=== PATIENT | male | born 1965 | race Hispanic/Latino ===

== ENCOUNTER 2017-03-28 16:54 | Emergency (ER) | payer OTHER ==
[2017-03-28] MEDS ORDERED: AZITHROMYCIN 250 MG TABLET PO ONE (19:24)
== END 2017-03-28 19:47 | disposition home or self-care (01) ==
LOC: EDH 16:54
DX: R04.0 Epistaxis (principal); J18.9 Pneumonia, unspecified organism; E11.9 Type 2 diabetes mellitus without complications; I10 Essential (primary) hypertension
CPT/HCPCS: 71046; 87804

== ENCOUNTER 2018-10-31 02:55 | Observation (INO) | payer OTHER ==
[~2018-10-31] VITALS: Ht 177.8 cm; Wt 133.7 kg
[2018-10-31 03:16] LABS: BASOPHILS % (AUTO) 0.7 % (0.0-5.0); EOSINOPHILS % (AUTO) 2.9 % (0.0-8.0); HEMATOCRIT 40.9 % (42-54); LYMPHOCYTES % (AUTO) 22.2 % (21.0-51.0); MEAN CORPUSCULAR HEMOGLOBIN 30.3 pg (27.0-33.0); MEAN CORPUSCULAR HGB CONC 33.9 g/dL (32.0-36.0); MEAN CORPUSCULAR VOLUME 89.4 fL (79-99); MONOCYTES % (AUTO) 12.4 % (3.0-13.0); NEUTROPHILS % (AUTO) 61.8 % (40.0-77.0); NUCLEATED RED BLOOD CELLS 0.1 % (0.0-0.19); PLATELET COUNT (AUTO) 79 K/uL (130-400); RED BLOOD CELL COUNT(AUTO) 4.57 MIL/uL (4.50-6.20); RED CELL DISTRIBUTION WIDTH 13.8 % (11.0-15.5); WHITE BLOOD COUNT (AUTO) 5.5 K/uL (4.8-10.8)
[2018-10-31 03:21] LABS: CREATININE 1.6 mg/dL (0.5-1.5); POTASSIUM 3.7 mmol/L (3.5-5.1)
[2018-10-31 03:26] LABS: ALBUMIN 3.9 g/dL (3.5-5.0); BILIRUBIN,TOTAL 0.8 mg/dL (0.2-1.0); TOTAL PROTEIN, SERUM 8.2 g/dL (6.0-8.3)
[2018-10-31 03:54] LABS: APPEARANCE,URINE Clear (CLEAR); BILIRUBIN,URINE Negative (NEGATIVE); COLOR,URINE Yellow (YELLOW); GLUCOSE, URINE (UA) >=1000 mg/dL (NEGATIVE); KETONES,URINE Negative (NEGATIVE); LEUKOCYTE ESTERASE ,URINE Trace (NEGATIVE); NITRATE,URINE Negative (NEGATIVE); OCCULT BLOOD,URINE Negative (NEGATIVE); PROTEIN,URINE POS 1+ mg/dL (NEGATIVE)
[2018-10-31 04:13] LABS: BACTERIA,URINE Few /HPF (None Seen); MUCUS,URINE Moderate LPF (None Seen); RBC,URINE None Seen /HPF (0-1); SQUAMOUS EPITHELIAL CELL,UR Moderate /HPF (0-2); YEAST,URINE BUDDING Moderate /HPF (None Seen)
[2018-10-31] MEDS ORDERED: ASPIRIN 325 MG TABLET ONE (04:52)
[2018-10-31] MEDS ORDERED: ONDANSETRON HCL 4 MG/2 ML VIAL IV PRN (07:15)
[2018-10-31] MEDS ORDERED: ACETAMINOPHEN 325 MG TAB PO PRN ×2 (07:15)
[2018-10-31 08:46] LABS: HEMOGLOBIN A1C 10.5 % (4.0-6.0)
[2018-10-31 09:11] LABS: MAGNESIUM 1.3 mg/dL (1.80-2.40); THYROID STIMULATING HORMONE 0.9 uIU/mL (0.36-3.74)
[2018-10-31 09:52] VITALS: BP 120/57
[2018-10-31] MEDS ORDERED: INSULIN HUMULIN R 100 UNIT/ML 3ML SQ SCH (11:30)
[2018-10-31 11:36] VITALS: BP 114/66
[2018-10-31] MEDS: ENOXAPARIN SODIUM 40 MG/0.4 ML SYRINGE SQ SCH (12:10)
[2018-10-31] MEDS: SODIUM CHLORIDE 0.9% 1000ML 1,000 ML IV SCH (12:11)
[2018-10-31] MEDS: MAGNESIUM 2GM PREMIX 50ML 50 ML IV PRN (13:59)
[2018-10-31 15:19] VITALS: BP 116/66
[2018-10-31] MEDS ORDERED: METF-526 PO (16:15)
[2018-10-31] MEDS ORDERED: METH500T6 PO (16:15)
[2018-10-31] MEDS ORDERED: METF500T7 PO (16:15)
[2018-10-31] MEDS ORDERED: INSU100C6 SQ (16:15)
[2018-10-31] MEDS ORDERED: PRAV10TA39 PO (16:15)
[2018-10-31] MEDS ORDERED: LISI40TA4 PO (16:15)
[2018-10-31] MEDS ORDERED: INSU100V12 SQ (16:15)
[2018-10-31] MEDS: INSULIN HUMULIN R 100 UNIT/ML 3ML SQ SCH ×4 (16:30→21:18)
[2018-10-31] MEDS ORDERED: GLUCAGON 1MG KIT 1 MG ML IM PRN (16:30)
[2018-10-31] MEDS ORDERED: DEXTROSE 50%-WATER 50 ML DISP.SYRIN IV PRN (16:30)
[2018-10-31] MEDS: INSULIN LISPRO 100 UNIT/ML 3ML SQ SCH (17:14)
[2018-10-31 19:42] VITALS: BP 121/74
[2018-10-31] MEDS ORDERED: LISINOPRIL 40 MG TABLET PO SCH (21:00)
[2018-10-31] MEDS ORDERED: SIMVASTATIN 10 MG TABLET PO SCH (21:00)
[2018-10-31] MEDS: INSULIN GLARGINE 100 UNITS/ML 10 ML VIAL SQ SCH (21:17)
[2018-10-31 23:30] VITALS: BP 108/57
[2018-11-01] MEDS: SODIUM CHLORIDE 0.9% 1000ML 1,000 ML IV SCH (03:04)
[2018-11-01 04:00] VITALS: BP 112/67
[2018-11-01 04:10] LABS: BASOPHILS % (AUTO) 0.8 % (0.0-5.0); EOSINOPHILS % (AUTO) 3.4 % (0.0-8.0); HEMATOCRIT 38.3 % (42-54); LYMPHOCYTES % (AUTO) 22.4 % (21.0-51.0); MEAN CORPUSCULAR HEMOGLOBIN 30.2 pg (27.0-33.0); MEAN CORPUSCULAR VOLUME 88.8 fL (79-99); MONOCYTES % (AUTO) 10.4 % (3.0-13.0); NUCLEATED RED BLOOD CELLS 0.1 % (0.0-0.19); PLATELET COUNT (AUTO) 78 K/uL (130-400); RED BLOOD CELL COUNT(AUTO) 4.31 MIL/uL (4.50-6.20); RED CELL DISTRIBUTION WIDTH 13.8 % (11.0-15.5); WHITE BLOOD COUNT (AUTO) 5.3 K/uL (4.8-10.8)
[2018-11-01 04:21] LABS: ALBUMIN 3.4 g/dL (3.5-5.0); BILIRUBIN,TOTAL 1.1 mg/dL (0.2-1.0); CREATININE 1.2 mg/dL (0.5-1.5); MAGNESIUM 1.3 mg/dL (1.80-2.40); POTASSIUM 3.7 mmol/L (3.5-5.1); TOTAL PROTEIN, SERUM 7.2 g/dL (6.0-8.3)
[2018-11-01 05:16] LABS: ERYTHROCYTE SEDIMENTATION RATE 32 MM/HR (0-20)
[2018-11-01] MEDS: INSULIN HUMULIN R 100 UNIT/ML 3ML SQ SCH ×4 (05:55→16:30)
[2018-11-01] MEDS: MAGNESIUM 2GM PREMIX 50ML 50 ML IV PRN (06:01)
[2018-11-01] MEDS: INSULIN LISPRO 100 UNIT/ML 3ML SQ SCH ×5 (06:03→17:23)
[2018-11-01 07:08] VITALS: BP 117/68
[2018-11-01] MEDS: ENOXAPARIN SODIUM 40 MG/0.4 ML SYRINGE SQ SCH (09:18)
[2018-11-01] MEDS: INSULIN GLARGINE 100 UNITS/ML 10 ML VIAL SQ SCH (09:24)
[2018-11-01] MEDS ORDERED: NITROGLYCERIN 1GM/1 INCH PACKET TD SCH (10:00)
[2018-11-01] MEDS ORDERED: ASPIRIN 325MG EC TAB 325 MG TABLET.DR PO SCH (10:00)
[2018-11-01 11:10] VITALS: BP 139/70
--- NOTE | 2018-11-01 11:51 | NUR ---
DC PLAN VISITED WITH PATIENT. PATIENT LIVES WITH FATHER. INDEPENDENT ABLE TO PERFORM ADL'S. PATIENT HAS NO SERVICES OR DME'S. FEELS SAFE TO RETURN HOME. WAS ASKED TO RETURN TO SPEAK TO SISTER. WANTING DISABILITY. SENT EMAIL TO HELP SONU. Addendum: 11/01/18 at 1154 by JARROD WILLINGHAM RN CM Amended: Links added.
[2018-11-01] MEDS ORDERED: METF-527 PO (14:52)
[2018-11-01] MEDS ORDERED: INSU100C6 SQ (14:52)
[2018-11-01] MEDS ORDERED: INSU100V12 SQ (14:52)
[2018-11-01] MEDS ORDERED: PRAV10TA39 PO (14:52)
[2018-11-01] MEDS ORDERED: MAGN400T6 PO (14:53)
[2018-11-01 15:10] VITALS: BP 124/77
[2018-11-01] MEDS ORDERED: INSULIN GLARGINE 100 UNITS/ML 10 ML VIAL SQ SCH (21:00)
[2018-11-01] MEDS ORDERED: METOPROLOL TARTRATE 25 MG TAB PO SCH (21:00)
[2018-11-01] MEDS ORDERED: FAMOTIDINE 20MG TAB 20 MG TAB PO SCH (21:00)
[2018-11-01] MEDS ORDERED: LISINOPRIL 5 MG TABLET PO SCH (21:00)
== END 2018-11-01 18:28 | disposition home or self-care (01) ==
LOC: EDH 02:55 → INTOOBSV 07:04 → EDHIP 07:04 → 2AH 09:40
PROVIDERS: ADMIT Family Medicine; ATTEND Family Medicine
DX: R07.89 Other chest pain (principal); E11.65 Type 2 diabetes mellitus with hyperglycemia; N17.9 Acute kidney failure, unspecified; I10 Essential (primary) hypertension; D69.6 Thrombocytopenia, unspecified; M62.838 Other muscle spasm; E78.5 Hyperlipidemia, unspecified; Z79.899 Other long term (current) drug therapy
CPT/HCPCS: 36415 ×2; 71045; 74176; 80053 ×2; 81001; 82550 ×2; 82948 ×7; 83036; 83735 ×2; 83880; 84443; 84484 ×3; 85025 ×2; 85651; 93005; 96365; 96366 ×2; 96372 ×2; A4510; G0378 ×30; G0480; J1650; J1815 ×4; J3475 ×2; J7030

== ENCOUNTER 2019-01-22 21:10 | Emergency (ER) | payer OTHER ==
[~2019-01-22 21:10] MED LIST: INSU100C6 SQ; INSU100V12 SQ; MAGN400T8 PO; METF-527 PO; PRAV10TA39 PO
[2019-01-22] MEDS ORDERED: KETOROLAC TROMETHAMINE 60 MG/2 ML VIAL ONE (21:33)
[2019-01-22] MEDS ORDERED: ACETAMINOPHEN-CODEINE 300/30MG TAB ONE (21:34)
== END 2019-01-22 22:01 | disposition home or self-care (01) ==
LOC: EDH 21:10
DX: K02.9 Dental caries, unspecified (principal); I10 Essential (primary) hypertension; E11.9 Type 2 diabetes mellitus without complications
CPT/HCPCS: 96372; 99283; J1885

== ENCOUNTER 2019-08-14 03:02 | Inpatient (IN) | payer OTHER ==
[~2019-08-14] VITALS: Ht 177.8 cm; Wt 138.3 kg
[2019-08-14] MEDS ORDERED: KETOROLAC TROMETHAMINE 15MG/ML ONE (03:29)
[2019-08-14] MEDS ORDERED: ASPIRIN 325 MG TABLET ONE (03:29)
[2019-08-14 03:41] LABS: BASOPHILS % (AUTO) 0.5 % (0.0-5.0); EOSINOPHILS % (AUTO) 2.7 % (0.0-8.0); LYMPHOCYTES % (AUTO) 23.5 % (21.0-51.0); MEAN CORPUSCULAR HEMOGLOBIN 29.1 pg (27.0-33.0); MEAN CORPUSCULAR HGB CONC 34.4 g/dL (32.0-36.0); MEAN CORPUSCULAR VOLUME 84.6 fL (79-99); MONOCYTES % (AUTO) 11.2 % (3.0-13.0); NEUTROPHILS % (AUTO) 61.8 % (40.0-77.0); PLATELET COUNT (AUTO) 86 K/uL (130-400); RED BLOOD CELL COUNT(AUTO) 4.61 MIL/uL (4.50-6.20); RED CELL DISTRIBUTION WIDTH 13.2 % (11.0-15.5)
[2019-08-14 03:52] LABS: INR 1.02 (0.85-1.15); PARTIAL THROMBOPLASTIN TIME 25.3 SEC (26.3-35.5)
[2019-08-14 03:57] LABS: CREATININE 1.6 mg/dL (0.5-1.5); POTASSIUM 3.5 mmol/L (3.5-5.1)
[2019-08-14 03:59] LABS: MAGNESIUM 1.9 mg/dL (1.80-2.40)
[2019-08-14 04:01] LABS: ALBUMIN 4.1 g/dL (3.5-5.0); BILIRUBIN,TOTAL 0.9 mg/dL (0.2-1.0); TOTAL PROTEIN, SERUM 8.4 g/dL (6.0-8.3)
[2019-08-14] MEDS ORDERED: NITROGLYCERIN 0.4 MG SL TAB SL PRN (06:45)
[2019-08-14] MEDS ORDERED: HYDRALAZINE HCL 20 MG/ML VIAL IV PRN ×2 (06:45→08:30)
[2019-08-14] MEDS ORDERED: MORPHINE SULFATE 2 MG/ML 1ML SYG IV PRN (06:45)
[2019-08-14] MEDS: CEFTRIAXONE SODIUM 1 GM IV SCH ×2 (06:45→18:20)
[2019-08-14 07:44] LABS: % IRON SATURATION 16.1 % (30-44)
[2019-08-14 08:10] LABS: ABG BASE EXCESS -3.6 mmol/L (-2.0-3.0); ABG HCO3 21.8 mmol/L (21.0-28.0); ABG OXYGEN SATURATION 95.3 % (95.0-99.0); ABG PCO2 41 mmHg (35-48)
[2019-08-14 08:14] LABS: CHOLESTEROL 120 mg/dL (<200); HDL CHOLESTEROL 31 mg/dL (29-71); LDL DIRECT 74 mg/dL (0-99); TRIGLYCERIDES 136 mg/dL (30-200)
[2019-08-14 08:36] LABS: CHOLESTEROL 122 mg/dL (<200); HDL CHOLESTEROL 31 mg/dL (29-71); LDL DIRECT 77 mg/dL (0-99); TRIGLYCERIDES 137 mg/dL (30-200)
[2019-08-14] MEDS: FAMOTIDINE/PF 20 MG/2 ML VIAL IV SCH (09:00)
[2019-08-14] MEDS: ASPIRIN 325 MG TABLET PO SCH (09:00)
[2019-08-14] MEDS ORDERED: CEFTRIAXONE SODIUM 1 GM ONE (09:18)
[2019-08-14] MEDS ORDERED: SODIUM CHLORIDE 0.9% 100 ML IV ONE (09:18)
[2019-08-14] MEDS ORDERED: FAMOTIDINE/PF 20 MG/2 ML VIAL IV ONE (09:19)
[2019-08-14 10:25] VITALS: BP 131/71
[2019-08-14] MEDS ORDERED: INSU100C6 SQ (11:06)
[2019-08-14] MEDS ORDERED: INSU100V12 SQ (11:06)
[2019-08-14] MEDS ORDERED: LISI40TA4 PO (11:06)
[2019-08-14] MEDS ORDERED: METH500T6 PO (11:06)
[2019-08-14] MEDS ORDERED: INSULIN HUMULIN R 100 UNIT/ML 3ML SQ SCH (11:30)
[2019-08-14 12:00] VITALS: BP 128/74
[2019-08-14] MEDS ORDERED: INSULIN GLARGINE 100 UNITS/ML 10 ML VIAL SQ ONE ×2 (13:00→15:15)
[2019-08-14] MEDS: SODIUM CHLORIDE 0.9% 1000ML 1,000 ML IV SCH (15:34)
[2019-08-14] MEDS: FUROSEMIDE 20 MG TABLET PO SCH (15:34)
[2019-08-14 16:00] VITALS: BP 119/77
[2019-08-14] MEDS ORDERED: INSULIN HUMULIN R 100 UNIT/ML 3ML ONE (16:45)
--- NOTE | 2019-08-14 16:49 | NUR ---
ONLY 12 UNITS OF INSULIN GIVEN NOT 300 PER PHARMACY COMPUTER. Addendum: 08/14/19 at 1650 by LORETO POWERS RN RN Amended: Links added.
[2019-08-14 20:09] VITALS: BP 138/69
[2019-08-14] MEDS: INSULIN HUMULIN R 100 UNIT/ML 3ML SQ SCH (20:47)
[2019-08-14 23:39] VITALS: BP 147/72
[2019-08-15] MEDS: SODIUM CHLORIDE 0.9% 1000ML 1,000 ML IV SCH ×2 (03:37→08:32)
[2019-08-15 04:11] LABS: BASOPHILS % (AUTO) 0.4 % (0.0-5.0); EOSINOPHILS % (AUTO) 3.1 % (0.0-8.0); HEMATOCRIT 38.1 % (42-54); LYMPHOCYTES % (AUTO) 23.5 % (21.0-51.0); MEAN CORPUSCULAR HEMOGLOBIN 29.4 pg (27.0-33.0); MEAN CORPUSCULAR HGB CONC 34.1 g/dL (32.0-36.0); MEAN CORPUSCULAR VOLUME 86.2 fL (79-99); MONOCYTES % (AUTO) 8.5 % (3.0-13.0); NEUTROPHILS % (AUTO) 64.3 % (40.0-77.0); PLATELET COUNT (AUTO) 68 K/uL (130-400); RED BLOOD CELL COUNT(AUTO) 4.42 MIL/uL (4.50-6.20); RED CELL DISTRIBUTION WIDTH 13.8 % (11.0-15.5); WHITE BLOOD COUNT (AUTO) 4.5 K/uL (4.8-10.8)
[2019-08-15 04:12] VITALS: BP 121/69
[2019-08-15 04:33] LABS: ALBUMIN 3.6 g/dL (3.5-5.0); BILIRUBIN,TOTAL 0.9 mg/dL (0.2-1.0); CREATININE 1.1 mg/dL (0.5-1.5); MAGNESIUM 1.8 mg/dL (1.80-2.40); PHOSPHORUS 3.4 mg/dL (2.5-4.9); POTASSIUM 4.2 mmol/L (3.5-5.1); TOTAL PROTEIN, SERUM 7.6 g/dL (6.0-8.3); URIC ACID 6.7 mg/dL (2.6-7.2)
[2019-08-15] MEDS: CEFTRIAXONE SODIUM 1 GM IV SCH ×2 (06:43→21:54)
[2019-08-15] MEDS: INSULIN HUMULIN R 100 UNIT/ML 3ML SQ SCH ×4 (06:45→21:32)
[2019-08-15 07:57] VITALS: BP 132/72
[2019-08-15] MEDS: FOLIC ACID/VITAMIN B COMP W-C 1 CAP TAB PO SCH (08:31)
[2019-08-15] MEDS: FAMOTIDINE/PF 20 MG/2 ML VIAL IV SCH (08:31)
[2019-08-15] MEDS: FUROSEMIDE 20 MG TABLET PO SCH (08:31)
[2019-08-15] MEDS: ASPIRIN 325 MG TABLET PO SCH (08:32)
[2019-08-15 08:44] LABS: CREATININE,URINE RANDOM 62 mg/dL (30-135); SODIUM,URINE RANDOM 81 mmol/l (40-220)
[2019-08-15 09:24] LABS: APPEARANCE,URINE CLEAR (CLEAR); BILIRUBIN,URINE NEGATIVE (NEGATIVE); COLOR,URINE YELLOW (YELLOW); GLUCOSE, URINE (UA) 500 mg/dL (NEGATIVE); KETONES,URINE NEGATIVE (NEGATIVE); LEUKOCYTE ESTERASE ,URINE MODERATE (NEGATIVE); NITRATE,URINE NEGATIVE (NEGATIVE); OCCULT BLOOD,URINE SMALL (NEGATIVE); PROTEIN,URINE NEGATIVE (NEGATIVE)
[2019-08-15 10:03] LABS: BACTERIA,URINE Rare /HPF (None Seen); RBC,URINE 0-1 /HPF (0-1); SQUAMOUS EPITHELIAL CELL,UR Rare /HPF (0-2)
[2019-08-15 11:34] VITALS: BP 137/78
--- NOTE | 2019-08-15 12:10 | NUR ---
DCP: HOME SW met with pt who is currently living with his parents, Luna [phone]. 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 Pt seen at [facility] for care and meds. Denies dc needs, plan [place] Addendum: 08/15/19 at 1212 by JUSTO PELAYO Amended: Links added.
--- NOTE | 2019-08-15 13:01 | NUR ---
DR. RODRIGEZ IN ROOM SPEAKING WITH PT. RE:PLAN OF CARE.
--- NOTE | 2019-08-15 13:27 | NUR ---
CM NOTE/SELF REFERRAL SELF REFERRAL/MEDICAL PACKETS AND GOOD RX COUPON EXPLAINED AND GIVEN TO PATIENT, PATIENT VERBALIZED UNDERSTANDING OF PACKETS AND COUPON
[2019-08-15] MEDS: ASPIRIN 81 MG EC TAB PO SCH (16:03)
[2019-08-15 16:20] VITALS: BP 142/73
[2019-08-15 19:00] VITALS: BP 136/83
[2019-08-15 23:00] VITALS: BP 141/77
[2019-08-16 03:00] VITALS: BP 144/82
[2019-08-16 04:23] LABS: HEMATOCRIT 38.2 % (42-54); MEAN CORPUSCULAR VOLUME 85.3 fL (79-99); RED BLOOD CELL COUNT(AUTO) 4.48 MIL/uL (4.50-6.20); RED CELL DISTRIBUTION WIDTH 13.3 % (11.0-15.5)
[2019-08-16 04:34] LABS: CREATININE 1.2 mg/dL (0.5-1.5); POTASSIUM 4.2 mmol/L (3.5-5.1)
[2019-08-16] MEDS: INSULIN HUMULIN R 100 UNIT/ML 3ML SQ SCH ×3 (06:40→16:30)
[2019-08-16 08:00] VITALS: BP 134/81
[2019-08-16] MEDS: FUROSEMIDE 20 MG TABLET PO SCH (08:24)
[2019-08-16] MEDS: CEFTRIAXONE SODIUM 1 GM IV SCH (08:24)
[2019-08-16] MEDS: ASPIRIN 81 MG EC TAB PO SCH (08:24)
[2019-08-16] MEDS ORDERED: INSU100V12 SQ (08:41)
[2019-08-16] MEDS ORDERED: INSU100C6 SQ (08:41)
[2019-08-16] MEDS: FOLIC ACID/VITAMIN B COMP W-C 1 CAP TAB PO SCH (09:00)
[2019-08-16] MEDS: FAMOTIDINE/PF 20 MG/2 ML VIAL IV SCH (09:00)
[2019-08-16 11:00] VITALS: BP 157/90
[2019-08-16 16:00] VITALS: BP_SYST 106; BP_SYST 125; BP_DIAS 61; BP_DIAS 82
--- NOTE | 2019-08-16 17:35 | NUR ---
PATIENT DISCHARGED HOME AT THIS TIME; ALL QUESTIONS ANSWERED AND DC INSTRUCTIONS GIVEN; PATIENT TO FOLLOW UP WITH PCP IN 3-5 DAYS AND [facility] FOR DIABETES MANAGEMENT; WE WERE UNABLE TO MAKE AN APPOINTMENT FOR HIM BECAUSE OFFICES WOULD NOT ANSWER. PIV AND TELEPACK REMOVED; NEW INSULIN PRESCRIPTIONS SENT TO PATIENT'S PHARMACY. NO COMPLAINTS STATED AT THIS TIME
== END 2019-08-16 17:45 | disposition home or self-care (01) | DRG 683 ==
LOC: EDH 03:02 → EDHIP 03:03 → 4DH 10:57
PROVIDERS: ADMIT Internal Medicine; ATTEND Internal Medicine
DX: N17.9 Acute kidney failure, unspecified (principal); I20.0 Unstable angina; E87.1 Hypo-osmolality and hyponatremia; I13.0 Hypertensive heart and chronic kidney disease with heart failure and stage 1 through stage 4 chronic kidney disease, or unspecified chronic kidney disease; E87.2 Acidosis; Z68.41 Body mass index [BMI] 40.0-44.9, adult; E11.65 Type 2 diabetes mellitus with hyperglycemia; I95.9 Hypotension, unspecified; R07.89 Other chest pain; N18.9 Chronic kidney disease, unspecified; I50.9 Heart failure, unspecified; E78.5 Hyperlipidemia, unspecified; E66.01 Morbid (severe) obesity due to excess calories; G47.33 Obstructive sleep apnea (adult) (pediatric); E11.51 Type 2 diabetes mellitus with diabetic peripheral angiopathy without gangrene; E11.22 Type 2 diabetes mellitus with diabetic chronic kidney disease; D69.6 Thrombocytopenia, unspecified; D64.9 Anemia, unspecified; Z80.3 Family history of malignant neoplasm of breast; Z83.3 Family history of diabetes mellitus; Z83.49 Family history of other endocrine, nutritional and metabolic diseases; Z82.0 Family history of epilepsy and other diseases of the nervous system; Z87.891 Personal history of nicotine dependence; Z79.4 Long term (current) use of insulin; Z82.49 Family history of ischemic heart disease and other diseases of the circulatory system
CPT/HCPCS: 36415; 36600; 71045; 76770; 80048; 80053; 80061; 81001; 82550; 82570; 82803; 82948; 83540; 83550; 83605; 83735; 83880; 83935; 84100; 84145; 84300; 84443; 84484; 84550; 85025; 85027; 85378; 85610; 85730; 87040; 87088; 93005; 93306; 93925; 93970; 99291; G0378; J0696; J1815; J1885; J3490; J7030

== ENCOUNTER → 2020-10-17 | Outpatient (CLI) | payer MEDICAID ==
[~2020-10-17] MED LIST changes: +LISI40TA9 PO; -MAGN400T8 PO; +METH-811 PO
== END | disposition home or self-care (01) ==
LOC: RAH 09:06
PROVIDERS: ATTEND Internal Medicine Gastroenterology
DX: R16.1 Splenomegaly, not elsewhere classified (principal); K74.69 Other cirrhosis of liver
CPT/HCPCS: 76700; 93975

== ENCOUNTER 2020-12-20 00:05 | Emergency (ER) | payer MEDICAID ==
[2020-12-20] MEDS ORDERED: MAGNESIUM 2GM PREMIX 50ML 50 ML IV ONE (00:41)
[2020-12-20] MEDS ORDERED: LORAZEPAM 2 MG/ML 1 ML VIAL ONE (00:41)
== END 2020-12-20 00:25 | disposition home or self-care (01) ==
LOC: EDH 00:05
DX: R25.2 Cramp and spasm (principal); Z53.21 Procedure and treatment not carried out due to patient leaving prior to being seen by health care provider
CPT/HCPCS: J2060; J3475

== ENCOUNTER 2020-12-20 00:14 | Emergency (ER) | payer MEDICAID ==
[2020-12-20] MEDS ORDERED: LORAZEPAM 2 MG/ML 1 ML VIAL IVP ONE ×2 (00:30→00:48)
[2020-12-20] MEDS ORDERED: MAGNESIUM 2GM PREMIX 50ML 50 ML IV SCH (00:30)
[2020-12-20 00:36] LABS: BASOPHILS % (AUTO) 0.6 % (0.0-5.0); EOSINOPHILS % (AUTO) 3.4 % (0.0-8.0); HEMATOCRIT 39.8 % (42-54); MEAN CORPUSCULAR HEMOGLOBIN 28.8 pg (27.0-33.0); MEAN CORPUSCULAR HGB CONC 34.4 g/dL (32.0-36.0); MEAN CORPUSCULAR VOLUME 83.6 fL (79-99); MONOCYTES % (AUTO) 13.2 % (3.0-13.0); NEUTROPHILS % (AUTO) 61.4 % (40.0-77.0); PLATELET COUNT (AUTO) 90 K/uL (130-400); RED BLOOD CELL COUNT(AUTO) 4.76 MIL/uL (4.50-6.20); RED CELL DISTRIBUTION WIDTH 13.3 % (11.0-15.5); WHITE BLOOD COUNT (AUTO) 5.4 K/uL (4.8-10.8)
[2020-12-20 00:45] LABS: CREATININE 1.3 mg/dL (0.5-1.5); POTASSIUM 4.2 mmol/L (3.5-5.1)
[2020-12-20 00:50] LABS: BILIRUBIN,TOTAL 1.2 mg/dL (0.2-1.0); TOTAL PROTEIN, SERUM 8.6 g/dL (6.0-8.3)
[2020-12-20] MEDS ORDERED: MAGNESIUM 2GM PREMIX 50ML 50 ML IV ONE (00:55)
[2020-12-20] MEDS ORDERED: FLUMAZENIL 0.1MG/1ML 5ML VIAL IV ONE (01:52)
[2020-12-20] MEDS ORDERED: FLUMAZENIL 0.1MG/1ML 5ML VIAL IV SCH (02:00)
[2020-12-20] MEDS ORDERED: 0.9%NACL 1000ML 1,000 ML IV ONE (02:00)
[2020-12-20 03:50] VITALS: BP 142/57
== END 2020-12-20 04:35 | disposition home or self-care (01) ==
LOC: EDH 00:14
DX: T50.901A Poisoning by unspecified drugs, medicaments and biological substances, accidental (unintentional), initial encounter (principal); R25.2 Cramp and spasm; E11.9 Type 2 diabetes mellitus without complications; E78.00 Pure hypercholesterolemia, unspecified; I10 Essential (primary) hypertension; Z91.19 Patient's noncompliance with other medical treatment and regimen; Z79.4 Long term (current) use of insulin; Z79.899 Other long term (current) drug therapy; Y92.89 Other specified places as the place of occurrence of the external cause
CPT/HCPCS: 36415; 80053; 83735; 85025; 96365; 96366; 96375; 99284; J2060 ×2; J3475 ×2; J3490

== ENCOUNTER 2022-02-23 23:54 | Observation (INO) | payer OTHER, MEDICARE ==
[~2022-02-23] VITALS: Ht 177.8 cm; Wt 138.6 kg
[2022-02-24] VITALS (7 sets, daily range): BP systolic 130–144; BP diastolic 59–90
[2022-02-24] MEDS ORDERED: INSU100I15 SQ (01:50)
[2022-02-24] MEDS ORDERED: INSLAN SQ (01:50)
[2022-02-24] MEDS ORDERED: CLONIDINE HCL 0.1 MG TABLET PO PRN (02:30)
[2022-02-24] MEDS ORDERED: LABETALOL 20MG SYG IV PRN (02:30)
[2022-02-24] MEDS ORDERED: HYDROCODONE/ACETAMINOPHEN 5/325 MG TAB PO PRN (02:30)
[2022-02-24] MEDS ORDERED: DOCUSATE SODIUM 100 MG CAP PO PRN (02:30)
[2022-02-24] MEDS ORDERED: KAYEXALATE 15GM/60ML PO PRN (02:30)
[2022-02-24] MEDS ORDERED: TEMAZEPAM 15 MG CAPSULE PO PRN (02:30)
[2022-02-24] MEDS ORDERED: ONDANSETRON 4MG INJ IVP PRN (02:30)
[2022-02-24] MEDS ORDERED: ACETAMINOPHEN 650 MG SUPPOSITORY RC PRN (02:30)
[2022-02-24] MEDS ORDERED: HYDRALAZINE 20MG/ML VIAL IV PRN (02:30)
[2022-02-24] MEDS ORDERED: ALBUTEROL 0.083% 2.5 MG/3 ML INH IH PRN (02:30)
[2022-02-24 02:59] LABS: BASOPHILS % (AUTO) 0.6 % (0.0-5.0); EOSINOPHILS % (AUTO) 4.7 % (0.0-8.0); HEMATOCRIT 35.6 % (42-54); LYMPHOCYTES % (AUTO) 17.9 % (21.0-51.0); MEAN CORPUSCULAR HGB CONC 34.3 g/dL (32.0-36.0); MEAN CORPUSCULAR VOLUME 84.8 fL (79-99); MONOCYTES % (AUTO) 11.4 % (3.0-13.0); PLATELET COUNT (AUTO) 68 K/uL (130-400); RED CELL DISTRIBUTION WIDTH 13.9 % (11.0-15.5); WHITE BLOOD COUNT (AUTO) 5.1 K/uL (4.8-10.8)
[2022-02-24 03:35] LABS: CREATININE 1.1 mg/dL (0.5-1.5); MAGNESIUM 1.8 mg/dL (1.80-2.40); PHOSPHORUS 4.2 mg/dL (2.5-4.9); THYROID STIMULATING HORMONE 0.66 uIU/mL (0.36-3.74)
[2022-02-24 03:49] LABS: HEMOGLOBIN A1C 8.8 % (4.0-6.0)
[2022-02-24] MEDS ORDERED: MAGNESIUM 2GM PREMIX 50ML 50 ML IV ONE (03:51)
[2022-02-24] MEDS: 0.9%NACL 1000ML 1,000 ML IV SCH ×3 (03:57→18:30)
[2022-02-24] MEDS ORDERED: MAGNESIUM 2GM PREMIX 50ML 50 ML IV PRN (04:00)
[2022-02-24] MEDS ORDERED: INSULIN HUMULIN R 100 UNIT/ML 3ML ONE (05:56)
[2022-02-24] MEDS: INSULIN HUMULIN R 100 UNIT/ML 3ML SQ SCH ×4 (06:30→20:56)
[2022-02-24] MEDS: INSULIN LISPRO 100 UNIT/ML 3ML SQ SCH ×4 (06:31→20:57)
[2022-02-24] MEDS: ENOXAPARIN SODIUM 40 MG/0.4 ML SYRINGE SQ SCH (09:00)
[2022-02-24] MEDS: ASPIRIN 325MG EC TAB PO SCH (10:19)
[2022-02-24] MEDS: INSULIN GLARGINE 100 UNITS/ML 10 ML VIAL SQ SCH ×2 (10:29→20:56)
[2022-02-24] MEDS: ACETAMINOPHEN 325 MG TAB PO PRN (10:41)
[2022-02-24] MEDS ORDERED: ATORVASTATIN 40 MG TABLET PO SCH (21:00)
[2022-02-25] MEDS ORDERED: GLUCAGON 1MG KIT 1 MG ML IM PRN
[2022-02-25] MEDS ORDERED: POTASSIUM CHLORIDE 10% ELIXIR 20 MEQ/15 ML UDCUP PO PRN
[2022-02-25] MEDS ORDERED: MAGNESIUM 2GM PREMIX 50ML 50 ML IV PRN
[2022-02-25] MEDS ORDERED: LIDOCAINE HCL-MPF 1% 2ML VIAL IV PRN ×2
[2022-02-25] MEDS ORDERED: POTASSIUM CHLORIDE 20MEQ/100ML 100 ML IV PRN ×2
[2022-02-25] MEDS ORDERED: KCL 20 MEQ ERTAB PO PRN
[2022-02-25] MEDS ORDERED: DEXTROSE 50%-WATER 50 ML DISP.SYRIN IV PRN
[2022-02-25] MEDS: 0.9%NACL 1000ML 1,000 ML IV SCH (02:30)
[2022-02-25 04:12] VITALS: BP 147/76
[2022-02-25 04:31] LABS: HEMATOCRIT 33.7 % (42-54); MEAN CORPUSCULAR HEMOGLOBIN 21.7 pg (27.0-33.0); MEAN CORPUSCULAR HGB CONC 30.9 g/dL (32.0-36.0); MEAN CORPUSCULAR VOLUME 70.4 fL (79-99); PLATELET COUNT (AUTO) 193 K/uL (130-400); RED BLOOD CELL COUNT(AUTO) 4.79 MIL/uL (4.50-6.20); RED CELL DISTRIBUTION WIDTH 20.6 % (11.0-15.5); WHITE BLOOD COUNT (AUTO) 7.2 K/uL (4.8-10.8)
[2022-02-25 04:39] LABS: POTASSIUM 3.2 mmol/L (3.5-5.1)
[2022-02-25] MEDS: INSULIN HUMULIN R 100 UNIT/ML 3ML SQ SCH ×2 (05:22→11:36)
[2022-02-25] MEDS: INSULIN LISPRO 100 UNIT/ML 3ML SQ SCH ×2 (07:19→11:35)
[2022-02-25] MEDS: ACETAMINOPHEN 325 MG TAB PO PRN (07:20)
[2022-02-25 08:00] VITALS: BP 146/91
[2022-02-25] MEDS: INSULIN GLARGINE 100 UNITS/ML 10 ML VIAL SQ SCH ×2 (09:00→09:31)
[2022-02-25] MEDS ORDERED: LISINOPRIL 40 MG TABLET PO SCH (09:00)
[2022-02-25] MEDS ORDERED: SPIRONOLACTONE 25 MG TAB PO SCH (09:00)
[2022-02-25] MEDS: ASPIRIN 325MG EC TAB PO SCH (09:23)
[2022-02-25] MEDS: ENOXAPARIN SODIUM 40 MG/0.4 ML SYRINGE SQ SCH (09:34)
[2022-02-25 11:56] VITALS: BP 144/86
[2022-02-25] MEDS ORDERED: DAPA10TA PO (12:08)
[2022-02-25] MEDS ORDERED: CLOP75TA32 PO (12:08)
[2022-02-25] MEDS ORDERED: PREG75CA75 PO (12:08)
[2022-02-25] MEDS ORDERED: FURO20TA4 PO (12:08)
[2022-02-25] MEDS ORDERED: PROP10TA10 PO (12:08)
[2022-02-25] MEDS ORDERED: ATORVASTATIN 10 MG TABLET PO SCH (21:00)
== END 2022-02-25 16:11 | disposition home or self-care (01) ==
LOC: INTOOBSV 02-24 01:11 → 4DH 02-24 01:11
PROVIDERS: ADMIT Internal Medicine; ATTEND Internal Medicine
DX: E11.65 Type 2 diabetes mellitus with hyperglycemia (principal); J20.9 Acute bronchitis, unspecified; N17.9 Acute kidney failure, unspecified; I12.9 Hypertensive chronic kidney disease with stage 1 through stage 4 chronic kidney disease, or unspecified chronic kidney disease; N18.2 Chronic kidney disease, stage 2 (mild); E11.22 Type 2 diabetes mellitus with diabetic chronic kidney disease; E66.01 Morbid (severe) obesity due to excess calories; G47.33 Obstructive sleep apnea (adult) (pediatric); E78.5 Hyperlipidemia, unspecified; R16.2 Hepatomegaly with splenomegaly, not elsewhere classified; Z68.41 Body mass index [BMI] 40.0-44.9, adult; Z79.899 Other long term (current) drug therapy; Z98.890 Other specified postprocedural states
CPT/HCPCS: 96361 ×2; 96365; 96366; 83036; 84443; 82550 ×3; 83735; 84100; 83874 ×3; 84484 ×3; 80061; 80048 ×2; 85025; 87804 ×2; 82948 ×6; 36415 ×2; 87635; 76700; 93306; 96372; 85027; 71045; G0378 ×36; G0379; J3475; J7030; J1815 ×5; J1650

== ENCOUNTER 2022-05-06 12:30 | Emergency (ER) | payer OTHER, MEDICARE ==
[~2022-05-06] VITALS: Ht 177.8 cm; Wt 129.3 kg
[~2022-05-06 12:30] MED LIST changes: +CLOP75TA32 PO; +DAPA10TA PO; +INSLAN SQ; -INSU100C6 SQ; +INSU100I15 SQ; -INSU100V12 SQ; -LISI40TA9 PO; -METH-811 PO; +PREG75CA75 PO; +PROP10TA10 PO
[2022-05-06 13:20] LABS: BASOPHILS % (AUTO) 0.3 % (0.0-5.0); HEMATOCRIT 40.4 % (42-54); LYMPHOCYTES % (AUTO) 5.7 % (21.0-51.0); MEAN CORPUSCULAR HEMOGLOBIN 28.9 pg (27.0-33.0); MEAN CORPUSCULAR HGB CONC 34.2 g/dL (32.0-36.0); MEAN CORPUSCULAR VOLUME 84.7 fL (79-99); MONOCYTES % (AUTO) 8.3 % (3.0-13.0); NEUTROPHILS % (AUTO) 84.4 % (40.0-77.0); PLATELET COUNT (AUTO) 83 K/uL (130-400); RED BLOOD CELL COUNT(AUTO) 4.77 MIL/uL (4.50-6.20); RED CELL DISTRIBUTION WIDTH 14.6 % (11.0-15.5); WHITE BLOOD COUNT (AUTO) 7.9 K/uL (4.8-10.8)
[2022-05-06 13:27] LABS: CREATININE 1.1 mg/dL (0.5-1.5); POTASSIUM 4.4 mmol/L (3.5-5.1)
[2022-05-06 13:31] LABS: ALBUMIN 3.7 g/dL (3.5-5.0)
[2022-05-06 13:41] LABS: APPEARANCE,URINE CLEAR (CLEAR); BILIRUBIN,URINE NEGATIVE (NEGATIVE); COLOR,URINE LIGHT-YELLOW (YELLOW); GLUCOSE, URINE (UA) >=1000 mg/dL (NEGATIVE); KETONES,URINE NEGATIVE (NEGATIVE); LEUKOCYTE ESTERASE ,URINE NEGATIVE Leu/uL (NEGATIVE); NITRATE,URINE NEGATIVE (NEGATIVE); OCCULT BLOOD,URINE NEGATIVE (NEGATIVE); PH,URINE 5.5 (5.0-8.0); PROTEIN,URINE 10 mg/dL (NEGATIVE); UROBILINOGEN,URINE 0.2 mg/dL (0.2-1.0)
[2022-05-06 14:33] LABS: RBC,URINE 0-1 /HPF (0-1); SQUAMOUS EPITHELIAL CELL,UR RARE /HPF (0-2); WBC,URINE 0-1 /HPF (0-1)
[2022-05-06] MEDS: ONDANSETRON 4MG INJ IVP ONE (16:36)
[2022-05-06] MEDS: DIPHENOXYLATE HCL/ATROPINE 2.5/0.025 MG TAB PO ONE (16:36)
[2022-05-06] MEDS: 0.9%NACL 1000ML 1,000 ML IV ONE (16:37)
[2022-05-06 18:00] VITALS: BP 132/78
[2022-05-06] MEDS ORDERED: DIPH1TAB24 PO (19:05)
[2022-05-06] MEDS ORDERED: ONDA4TAB10 PO (19:05)
== END 2022-05-06 19:20 | disposition home or self-care (01) ==
LOC: EDH 12:30
DX: K52.9 Noninfective gastroenteritis and colitis, unspecified (principal); E86.0 Dehydration; E11.9 Type 2 diabetes mellitus without complications; I10 Essential (primary) hypertension; Z79.4 Long term (current) use of insulin; Z79.84 Long term (current) use of oral hypoglycemic drugs; Z20.822 Contact with and (suspected) exposure to COVID-19
CPT/HCPCS: 99285; 96374; 71045; 87635; 96361; 82270; 82150; 83735; 80053; 85025; 87046; 87177; 81001; 36415; 93005; 87493; 83630; 87324; C9803; J7030; J2405

== ENCOUNTER → 2023-02-23 | Outpatient (CLI) | payer OTHER, MEDICARE ==
[~2023-02-23] MED LIST changes: +DIPH1TAB24 PO; +ONDA4TAB10 PO; -PREG75CA75 PO; +PREG75CA76 PO
[2023-02-23 21:48] VITALS: PULSE 70; RESP 14
[2023-02-23 22:02] VITALS: PULSE 68; RESP 14
[2023-02-23 22:31] VITALS: PULSE 70; RESP 12
[2023-02-23 23:00] VITALS: PULSE 68; RESP 12
[2023-02-23 23:29] VITALS: PULSE 75; RESP 14
[2023-02-24] VITALS (11 sets, daily range): PULSE 63–66; RESP 14–18
== END | disposition home or self-care (01) ==
LOC: SLP 16:50
PROVIDERS: ATTEND Internal Medicine Cardiovascular Disease
DX: G47.33 Obstructive sleep apnea (adult) (pediatric) (principal)
CPT/HCPCS: 95810

== ENCOUNTER → 2023-02-24 | Outpatient (CLI) | payer OTHER, MEDICARE ==
[2023-02-24] VITALS (8 sets, daily range): PULSE 72–78; RESP 5–15
[2023-02-25] VITALS (12 sets, daily range): PULSE 62–73; RESP 9–17
== END | disposition home or self-care (01) ==
LOC: SLP 20:25
PROVIDERS: ATTEND Internal Medicine Cardiovascular Disease
DX: G47.33 Obstructive sleep apnea (adult) (pediatric) (principal)
CPT/HCPCS: 95811

== ENCOUNTER → 2023-03-03 | Outpatient (CLI) | payer OTHER | END | disposition home or self-care (01) | LOC: RAH 12:31 | PROVIDERS: ATTEND Internal Medicine Cardiovascular Disease | DX: Z13.6 Encounter for screening for cardiovascular disorders (principal) | CPT/HCPCS: 75571 ==

== ENCOUNTER 2023-03-18 08:04 | Day surgery (SDC) | payer OTHER, MEDICARE ==
[2023-03-18] VITALS (9 sets, daily range): BP systolic 123–155; BP diastolic 71–87; PULSE 69–75; RESP 15–18
[~2023-03-18] VITALS: Ht 177.8 cm; Wt 131.5 kg
[~2023-03-18 08:04] MED LIST changes: +CEPH500C2 PO; -CLOP75TA32 PO; -DIPH1TAB24 PO; +FURO20TA4 PO; -ONDA4TAB10 PO; -PREG75CA76 PO
[2023-03-18] MEDS ORDERED: LIDOCAINE HCL 1% 20 ML VIAL ONE (10:01)
[2023-03-18] MEDS ORDERED: PROPOFOL 10 MG/ML 20ML VIAL IV ONE (10:01)
[2023-03-18] MEDS ORDERED: 0.9%NACL 1000ML 1,000 ML IV ONE (11:25)
== END 2023-03-18 11:20 | disposition home or self-care (01) ==
LOC: ENDO 08:04 → DAH 08:04 → ENDO 11:20
PROVIDERS: ATTEND Internal Medicine Gastroenterology
DX: I85.00 Esophageal varices without bleeding (principal); K31.7 Polyp of stomach and duodenum; K76.6 Portal hypertension; K31.89 Other diseases of stomach and duodenum; D13.2 Benign neoplasm of duodenum; K59.00 Constipation, unspecified; K62.89 Other specified diseases of anus and rectum; K44.9 Diaphragmatic hernia without obstruction or gangrene; K29.70 Gastritis, unspecified, without bleeding; E11.9 Type 2 diabetes mellitus without complications; I10 Essential (primary) hypertension; E78.5 Hyperlipidemia, unspecified; Z82.49 Family history of ischemic heart disease and other diseases of the circulatory system; Z83.42 Family history of familial hypercholesterolemia; Z83.3 Family history of diabetes mellitus; Z79.4 Long term (current) use of insulin; Z87.891 Personal history of nicotine dependence; Z79.84 Long term (current) use of oral hypoglycemic drugs; Z79.899 Other long term (current) drug therapy; Z98.890 Other specified postprocedural states
CPT/HCPCS: 43251; 82948 ×2; 43244; J7030 ×2; J2704; A4620; A4215 ×2; A4223; A7002; A4222; A4221; A4663; A4216; A4606; J3490

== ENCOUNTER 2023-03-26 10:35 | Emergency (ER) | payer OTHER, MEDICARE ==
[~2023-03-26] VITALS: Ht 177.8 cm; Wt 133.4 kg
[2023-03-26 10:55] VITALS: BP 132/74; PULSE 79; RESP 18
[2023-03-26] MEDS ORDERED: CLIN-141 PO ×2 (13:45→14:33)
== END 2023-03-26 13:58 | disposition home or self-care (01) ==
LOC: EDH 10:35
DX: S91.332A Puncture wound without foreign body, left foot, initial encounter (principal); W18.31XA Fall on same level due to stepping on an object, initial encounter; Y93.89 Activity, other specified; Y92.89 Other specified places as the place of occurrence of the external cause; Y99.8 Other external cause status
CPT/HCPCS: 73630